=== PATIENT | male | born 1990 | race Caucasian/White ===

== ENCOUNTER 2023-03-31 12:11 | Outpatient (OUT) | payer MEDICAID, SELFPAY ==
--- NOTE | 2023-03-31 12:51 | XR_ITS ---
[address] [address] Patient Name: KASIA MOSS MRN: [id number] date: 1990 Sex: M Assigned Patient Location: LAB Current Patient Location: LAB Accession/Order Number: [id number] Exam Date: 03/31/2023 12:45 Report Date: 03/31/2023 14:46 At the request of: KERI ESCAMILLA Procedure: XR foot RT min 3V EXAM: XR foot RT min 3V HISTORY: Acute pain for several weeks. Right foot pain M79.671 COMPARISON: None. TECHNIQUE: 3 views right foot. FINDINGS: No fracture or dislocation right foot. Suspect mild diffuse edema especially medial. No radiopaque foreign body. No significant degenerative changes. IMPRESSION: Slight edema without acute bony process right foot. Electronically authenticated by: ESEQUIEL CHRISTIE Date: 03/31/2023 14:46
[2023-03-31 13:05] LABS: Basophils Absolute Auto 0.1 10^3/uL (0.0-0.1); Basophils Percent Auto 0.8 % (0.2-2.0); Eosinophils Absolute Auto 0.1 10^3/uL (0.0-0.7); Eosinophils Percent Auto 0.8 % (0.9-7.0); Hematocrit 44.4 % (42.0-54.0); Hemoglobin 14.7 g/dL (14.0-18.0); Immature Granulocytes Abs Auto 0.02 10^3/uL (0.00-0.03); Immature Granulocytes Pct Auto 0.3 % (0.0-0.5); Lymphocytes Absolute Auto 2.1 10^3/uL (1.2-3.8); Lymphocytes Percent Auto 26.9 % (20.5-60.0); Mean Corpuscular HGB Conc 33.1 g/dL (29.9-35.2); Mean Corpuscular Hemoglobin 29.9 pg (25.9-34.0); Mean Corpuscular Volume 90.2 fL (80.0-94.0); Monocytes Absolute Auto 0.6 10^3/uL (0.3-0.8); Monocytes Percent Auto 7.4 % (1.7-12.0); Neutrophils Percent Auto 63.8 % (43.0-75.0); Platelet Count 305 10^3/uL (150-450); Red Blood Count 4.92 10^6/uL (4.70-6.10); Red Cell Distribution Width 12.7 % (11.0-15.0); White Blood Count 7.8 10^3/uL (4.0-11.0)
== END 2023-03-31 12:12 | disposition home or self-care (01) ==
PROVIDERS: PCP Family Medicine; Visit Provider Family Medicine
DX: M79.671 Pain in right foot (principal)
CPT/HCPCS: 36415; 73630; 84550; 85025